=== PATIENT | male | born 1945 | race Hispanic/Latino ===

== ENCOUNTER 2020-11-17 11:19 | Emergency (ER) | payer OTHER, MEDICARE ==
[~2020-11-17] VITALS: Ht 162.6 cm; Wt 65.8 kg
[2020-11-17 12:01] LABS: BASOPHILS % 0.2 % (0.0-1.0); EOSINOPHILS % 0.4 % (0.0-6.0); HEMATOCRIT 31.7 % (38.2-49.6); HEMOGLOBIN 10.8 g/dL (14.0-18.0); LYMPHOCYTES # (AUTO) 0.7 (1.0-3.2); LYMPHOCYTES % 12.9 % (18.0-39.1); MEAN CORPUSCULAR HEMOGLOBIN 32.4 pg (28-32); MEAN CORPUSCULAR HGB CONC 34.1 g/dL (31-35); MEAN CORPUSCULAR VOLUME 95.2 fL (81-99); MONOCYTES # (AUTO) 0.2 (0.2-0.8); MONOCYTES % 3.6 % (4.4-11.3); NEUTROPHILS # (AUTO) 4.1 (2.1-6.9); NEUTROPHILS % 81.5 % (38.7-80.0); PLATELET COUNT 127 x10e3/uL (140-360); RED BLOOD COUNT 3.33 x10e6/uL (4.3-5.7); RED CELL DISTRIBUTION WIDTH 13.3 % (11.7-14.4)
[2020-11-17] MEDS ORDERED: ALLOPURINOL100 MG PO (12:01)
[2020-11-17] MEDS ORDERED: LEVETIRACETAM500 MG PO (12:02)
[2020-11-17] MEDS ORDERED: GLIMEPIRIDE2 MG PO (12:02)
[2020-11-17] MEDS ORDERED: FLOMAX0.4 MG PO (12:02)
[2020-11-17] MEDS ORDERED: LISINOPRIL5 MG PO (12:02)
[2020-11-17] MEDS ORDERED: QUETIAPINE FUMA25 MG PO (12:02)
[2020-11-17] MEDS ORDERED: ATORVASTATIN CA20 MG PO (12:02)
[2020-11-17] MEDS ORDERED: AMITIZA24 MCG PO (12:02)
[2020-11-17] MEDS ORDERED: DOXAZOSIN MESYLA2 MG PO (12:02)
[2020-11-17] MEDS ORDERED: FINASTERIDE5 MG PO (12:02)
[2020-11-17] MEDS ORDERED: LEVOTHYROXINE50 MCG PO (12:02)
[2020-11-17] MEDS ORDERED: SINEMET 25-2501 EACH PO (12:02)
[2020-11-17] MEDS ORDERED: DOCUSATE SODIU100 MG PO (12:02)
[2020-11-17 12:25] LABS: ALBUMIN 2.7 g/dL (3.5-5.0); ALBUMIN/GLOBULIN RATIO 0.8 (0.8-2.0); ANION GAP 14.5 mmol/L (8-16); CALCIUM 7.6 mg/dL (8.4-10.2); CREATININE, SERUM 2.03 mg/dL (0.72-1.25); POTASSIUM 4.5 mmol/L (3.5-5.1)
[2020-11-17 14:05] LABS: CREATINE KINASE MB 1.9 ng/mL (0-5.0)
== END 2020-11-17 16:32 | disposition home or self-care (01) ==
LOC: ER 11:54
DX: U07.1 COVID-19 (principal); I10 Essential (primary) hypertension; E11.9 Type 2 diabetes mellitus without complications; Z86.73 Personal history of transient ischemic attack (TIA), and cerebral infarction without residual deficits
CPT/HCPCS: 36415; 70450; 71045; 80053; 82550; 82553; 83605; 84484; 85025; 87040; 93005; 99284; U0002